=== PATIENT | male | born 1965 | race Caucasian/White ===

== ENCOUNTER → 2017-08-20 | Outpatient (CLI) | payer OTHER ==
[~2017-08-20] VITALS: Ht 180.3 cm; Wt 113.4 kg
[~2017-08-20] MED LIST: DEPO-TESTO100 MG/1 M IM; HYDROCODON-ACE1 EAC5 PO; NORCO 10-325 T1 EACH PO; VENTOLIN HFA 1818 GM INH
--- NOTE | ~2017-08-20 | HPC ---
[facility] [place] [address] PAIN MANAGEMENT CONSULTATION Name: RIC MEEKSN Room #: REG CL MSheron.#: [id number] Admission: 08/20/17 Attend Phys: Eugenio Franco MD Discharge: Date of : 65 Report #: [id number] THIS REPORT FOR: //name// CC: LYRIC Boucher MD DATE OF SERVICE: 08/20/2017 Followup visit for chronic back pain with spondylolisthesis and intrathecal infusion pump. The patient returns to Pain Clinic today for first refill in our clinic. He has had 2 pocket fills and has always been filled under fluoroscopic guidance as a result those 2 complications. Simply uncomfortable, receiving a pump refill without the use of fluoroscopy to guide the needle. I agreed to do this as a favor to Pain and Dr. Jos Boucher. I apparently have also assumed the prescribing of his breakthrough oral opioids. He is on modest dose taking 2 hydrocodone 10/325 per day for breakthrough not taking the same dose each day, but using it carefully only for breakthrough pain. He describes his pain today as modest. He has come from work to have his pump filled. Pain is mostly across his low back. He describes it as 4-5 with medication. As a result of his need for us to provide his medication, he has completed a pain impact score, which is very low 9 out of a possible 70. His score is highest for sleep interference with 4/10. His ORT is 0 for risk for addiction. PHYSICAL EXAMINATION: He is a pleasant gentleman. Blood pressure is 162/94, heart rate 91, respirations 14. His BMI is 34.9. Moves easily from sitting to standing position, ambulates with mild discomfort. Mild tenderness across the scar in the back and he has a pump in the left lower quadrant which is also mildly tender. IMPRESSION: 1. Chronic low back pain with spondylosis. 2. History of testicular cancer in 1990. 3. Intrathecal infusion pump with morphine infusing at 10 mg per day. 4. Management of high risk opioid medications at modest dose of 20 morphine milligram equivalents and hydrocodone 10/325 two tablets daily. 5. Osteoarthritis, status post left knee replacement with right knee osteoarthritis. 6. Gastroesophageal reflux disease. PLAN: 1. I renewed his medications under terms of written opioid agreement established today. We discussed his responsibilities, my responsibilities, [place] [address] PAIN MANAGEMENT CONSULTATION Name: RIC MEEKS ERIC Room #: REG GARETT Tavarez#: [id number] Admission: 08/20/17 Attend Phys: Eugenio Franco MD Discharge: Date of : 65 Report #: [id number] guideline and he signed an opioid agreement. 2. Refill of intrathecal infusion pump under fluoroscopic guidance. PROCEDURE: The patient was taken to fluoroscopic suite, was placed supine. Skin was prepped with ChloraPrep. Skin was anesthetized over the left abdomen with 1% lidocaine. On the first attempt, I advanced the 22-gauge non-coring needle into the pump. Old medication was expected at 4 mL and that is exactly what we retrieved. It was discarded under protocol. The pump was then refilled with morphine 25 mg per mL, 40 mL and the dose at 10 mg per day. His estimated ANA is 75 months. Low reservoir alarm will be on 11/21/2017. I provided him with prescriptions for hydrocodone 60 tablets for release today, 4 and 8 weeks. It will be released in September and October he should be able to make it back to his next appointment for refill. By: [id number] Eugenio rFanco MD /nt
[2017-08-20 14:29] VITALS: BP 162/94
== END | disposition home or self-care (01) ==
LOC: PAIN 07:27
DX: Z45.1 Encounter for adjustment and management of infusion pump (principal); M54.5 Low back pain; G89.29 Other chronic pain; M47.896 Other spondylosis, lumbar region; M17.0 Bilateral primary osteoarthritis of knee; K21.9 Gastro-esophageal reflux disease without esophagitis; Z79.891 Long term (current) use of opiate analgesic; Z79.899 Other long term (current) drug therapy; Z98.890 Other specified postprocedural states; Z85.47 Personal history of malignant neoplasm of testis

== ENCOUNTER → 2017-11-19 | Outpatient (CLI) | payer OTHER ==
[~2017-11-19] VITALS: Ht 180.3 cm; Wt 108.5 kg
--- NOTE | ~2017-11-19 | HPC ---
[facility] [address] [place] [address] PAIN MANAGEMENT CONSULTATION Name: RIC MEEKSN Room #: REG [facility] MJatinder.#: [id number] Admission: 11/19/17 Attend Phys: Eugenio Franco MD Discharge: Date of : 65 Report #: [id number] THIS REPORT FOR: //name// CC: LYRIC GUNTER Physician staff Eugenio Boucher MD DATE OF SERVICE: 11/19/2017 Followup visit for management of intrathecal infusion pump and low dose hydrocodone for breakthrough. Chronic back pain with spondylolisthesis and spondylosis. The patient is here today for refill of his intrathecal pump. This is his second fill with our clinic. He is here today to have his pump filled under fluoroscopic guidance. He suffered a pump pocket fill with overdose and will not continue with his successful therapy unless his pump is filled under fluoroscopy. He reports that he is doing great. He is taking charge of his wellness program and is working out aggressively lifting weights and eating better. His BMI continues to drop and is down to 33.4 from 34.9 at last visit. That is a drop of 11 pounds. His blood pressures improved on both systolic and diastolic, and his pain intensity is manageable with his intrathecal pump. He has previously used higher doses of narcotics but has reduced his use of hydrocodone to 1-2 per day. He still has some medication remaining from his last visit in August. I will renew his hydrocodone until his next pump refill at 2 tablets a day or 20 morphine milligram equivalents. We have discussed at length the CDC guideline, his opioid agreement and his responsibility for safeguarding medications. 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 Medication is helpful for that. He is grateful for the relief allowing him to continue at work. PHYSICAL EXAMINATION: GENERAL: He is pleasant, alert and oriented, appears fit. Muscular. VITAL SIGNS: His blood pressure is 149/85, heart rate is 95, respirations 20. He has mild tenderness across his low back, pain with forward flexion, extension, which is mild. Straight leg raising is negative. Pump is in the left lower quadrant with a slight outward tilt. IMPRESSION: 1. Chronic low back pain with spondylosis. [facility] [address] [place] [address] PAIN MANAGEMENT CONSULTATION Name: RIC MEEKSN Room #: REG [facility] Joss.#: [id number] Admission: 11/19/17 Attend Phys: Eugenio Franco MD Discharge: Date of : 65 Report #: [id number] 2. History of testicular cancer in 1990. 3. Osteoarthritis, status post left knee replacement and right knee arthritis. 4. Gastroesophageal reflux disease. 5. Management of opioid medications at 20 morphine milligrams per day. 6. Intrathecal pump refill and reprogramming. PROCEDURE: After informed consent, he was taken to the fluoroscopic suite for the refill. Skin was prepped with ChloraPrep and I used the C-arm to place the needle into the intrathecal pump on the first attempt without difficulty. I retrieved 6 mL of morphine, which was discarded per protocol and the pump was refilled with 39.5 mL of morphine 25 mg/mL and a reprogramming session performed. He remains on relatively high dose 10 mg per day. No adjustment in dose was made. We discussed the possibility of intrathecal granuloma. He is already on testosterone for the hormonal side effects associated with intrathecal therapies. Plan to see him back in the pain clinic in about 3-6 months. By: [id number] [id number] Eugenio Franco MD /nt
[2017-11-19 09:16] VITALS: BP 149/85
== END | disposition home or self-care (01) ==
LOC: PAIN 06:04
DX: Z45.1 Encounter for adjustment and management of infusion pump (principal); M47.896 Other spondylosis, lumbar region; G89.29 Other chronic pain; M17.0 Bilateral primary osteoarthritis of knee; K21.9 Gastro-esophageal reflux disease without esophagitis; Z79.891 Long term (current) use of opiate analgesic; Z85.47 Personal history of malignant neoplasm of testis; Z98.890 Other specified postprocedural states

== ENCOUNTER → 2018-02-18 | Outpatient (CLI) | payer OTHER ==
[~2018-02-18] VITALS: Ht 180.3 cm; Wt 107.0 kg
--- NOTE | ~2018-02-18 | HPC ---
[facility] [place] [address] PAIN MANAGEMENT CONSULTATION Name: RIC MEEKSN Room #: REG [facility] MJatinder.#: [id number] Admission: 02/18/18 Attend Phys: Eugenio Franco MD Discharge: Date of : 65 Report #: [id number] THIS REPORT FOR: //name// CC: LYRIC JAIN Physician staff Eugenio Franco DATE OF SERVICE: 02/18/2018 CHIEF COMPLAINT: Followup visit for refill of intrathecal infusion pump. The patient returns to clinic today for refill. We filled his pump under fluoroscopic guidance at his request. He had a pocket fill at the clinic at Pain and as I think reasonably requested that he have his pump filled under fluoroscopic guidance for the needle. This reassures him that the pump fill has been done without missing the pocket. I am glad to provide him with this added level of security for this important therapy he has now had for over 10 years. He has chronic back pain and denies leg pain. His intrathecal pump provides morphine only at a dose of 10 mg/mL. He is aware that there may be a risk of intrathecal granuloma formation with the higher dose of morphine in his pump. We have only taken over the Pain physicians within the last 12 months. He also is on testosterone therapy for opioid related endocrinopathy. He has developed polycythemia and his primary care physician, Dr. Jain, is lowering his dose. I did also point out to him that he has a history of testicular cancer. I do not know the evidence on a supplement of testosterone and testicular cancer, but we are always cautious about testosterone for patients who have had prostate cancer in the past. He says he has discussed this with his primary care physician. He is currently working and in fact will be driving today to [place]. 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 I was glad he was back at work after being on disability for over 7 years. MEDICATIONS: Reviewed and reconciled. He continues to take hydrocodone one tablet twice a day for breakthrough pain and I have been providing this for him under terms of written opioid agreement. He has no evidence of misuse or abuse. PHYSICAL EXAMINATION: GENERAL: He is a pleasant gentleman. VITAL SIGNS: Blood pressure 178/92, heart rate 85. BMI is 32.9. EXTREMITIES: Moves from sitting to standing position, walks without difficulty. He has some tenderness across his low back and limited range of motion. Denies any leg pain at this time. His pain score is 7/10. [address] [address] PAIN MANAGEMENT CONSULTATION Name: RIC MEEKS Room #: REG CL Daysi#: [id number] Admission: 02/18/18 Attend Phys: Eugenio Franco MD Discharge: Date of : 65 Report #: [id number] IMPRESSION: 1. Chronic intractable back pain. 2. Intrathecal infusion pump. 3. History of laminectomy x 2. 4. History of left total knee replacement. PROCEDURE: Refill and reprogramming of intrathecal infusion pump under fluoroscopic guidance. He was taken to fluoroscopic suite. C-arm was used to identify the intrathecal pump and its placement. The skin was prepped with ChloraPrep. A 22-gauge non-coring needle advanced into the intrathecal pump. Old medication was removed and discarded. We expected 3.5 and retrieved 5 mL that was discarded per protocol. The pump was then refilled with 39.5 mL of morphine 25 mg/mL. Reprogramming session was performed. His daily dose will be 10 mg of morphine per day. His refill interval will carry him through until 05/22/2018 at which time we will see him back in the clinic for refill. Programming information was checked by myself, the nurse copy provided to the patient. We once again discussed the importance of making sure that he feels okay today and if he has any changes in sensorium, lightheadedness, dizziness, or sleepiness, he should go immediately to the Emergency Room. I think it is highly unlikely that there has been any half pocket fill or a problem with today's refill, everything went according to protocol. Followup visit planned in 3 months. By: 1206 20 Eugenio Franco MD /andrew
[2018-02-18 09:38] VITALS: BP 178/92
== END | disposition home or self-care (01) ==
LOC: PAIN 07:03
DX: Z45.1 Encounter for adjustment and management of infusion pump (principal); M54.9 Dorsalgia, unspecified; G89.29 Other chronic pain; Z98.890 Other specified postprocedural states; Z96.652 Presence of left artificial knee joint; Z79.899 Other long term (current) drug therapy; Z79.891 Long term (current) use of opiate analgesic

== ENCOUNTER → 2018-05-16 | Outpatient (CLI) | payer OTHER ==
[~2018-05-16] VITALS: Ht 180.3 cm; Wt 113.7 kg
[~2018-05-16] MED LIST changes: +NARCAN4 MG NASAL
--- NOTE | ~2018-05-16 | HPC ---
[facility] [place] [address] PAIN MANAGEMENT CONSULTATION Name: RIC MEEKS Room #: REG [facility] M..#: [id number] Admission: 05/16/18 Attend Phys: Eugenio Franco MD Discharge: Date of : 65 Report #: [id number] THIS REPORT FOR: //name// CC: LYRIC JAIN DO Physician staff Eugenio Boucher MD DATE OF SERVICE: 05/16/2018 Followup visit for refill of intrathecal infusion pump. The patient returns to pain clinic today for fluoroscopically-guided refill of his intrathecal pump. He is doing well. He is satisfied with his current regimen of medication. He does have a new injury. 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 He still has some tenderness there, but there is nothing to do other than allow it to resolve. He has been taking a little bit more of his breakthrough hydrocodone, which I provide for him. He is allowed 2 hydrocodone 10/325 tablets per day as needed for a supplement to his intrathecal pump. We reviewed the refill and I have agreed to provide these for him under fluoroscopic guidance due to his tremendous fear of intrathecal pump pocket fill. I think that the use of fluoroscopy is warranted in this circumstance. We have also discussed the use of nasal naloxone for many of our patients, particularly those are fearful of overdose, having nasal naloxone on hand for immediate treatment should something untoward develop is a reassurance. He has agreed to fill the prescription as described. He continues all other medications including testosterone therapy for opioid related endocrinopathy and follows with Dr. Jain for his polycythemia. PHYSICAL EXAMINATION: GENERAL: He is a fit, muscular appearing 53-year-old. VITAL SIGNS: His blood pressure is 164/99, heart rate 88, respirations 16. BMI is 35. MUSCULOSKELETAL: He has some tenderness across his low back, which is mild to moderate. Pump is in the left lower quadrant of the abdomen, is a bit of forward cant. It is nontender. He has multiple abdominal scars. IMPRESSION: [facility] [address] [place] [address] PAIN MANAGEMENT CONSULTATION Name: RIC MEEKSN Room #: REG GARETT PendletonSheronCristopher.#: [id number] Admission: 05/16/18 Attend Phys: Eugenio Franco MD Discharge: Date of : 65 Report #: [id number] 1. Chronic intractable back pain with spondylosis, status post multiple spinal surgeries. 2. History of testicular cancer in 1990. 3. Elevated body mass of 33. 4. Management of intrathecal infusion pump with morphine. Refill today. 5. Management of high risk opioid medications in terms of written opioid agreement. Maximum MME is 20. 6. Osteoarthritis, left knee, status post replacement. 7. Gastroesophageal reflux. PROCEDURE: Refill and reprogramming. DESCRIPTION OF PROCEDURE: Skin was prepped with ChloraPrep. Skin anesthetized and a 22-gauge non-coring needle advanced under fluoroscopic guidance into the intrathecal pump. We expected 4.7 mL. We got nearly exactly that amount and it was disposed per protocol. Pump was then refilled with 39.5 mL of morphine 10 mg/mL and reprogramming session at 10 mg per day provided. His next refill is scheduled for 08/17/2018. Prescriptions were provided for his breakthrough hydrocodone 10/325 two tablets per day and also for naloxone 4 mg spray 1 activation every 3 minutes if unconscious with repeat as necessary until the patient is awake. The patient is instructed in any circumstance to call 911. Followup visit planned in 3 months. By: 1644 [id number] Eugenio Franco MD /nt
[2018-05-16 14:49] VITALS: BP 164/99
--- NOTE | 2018-05-16 15:21 | NUR ---
Pain Clinic Assessment: 1. History of Osteoarthritis: knees History of Rheumatoid Arthritis: Not Applicable 2. Height: 5 ft. 11 in. 180.3 cm. Weight: 250.6 lb. oz. 113.672 kg. Patient's BMI: 35.0 3. Vital Signs: BP: 164/99 Pulse: 88 Resp: 16 Temp: 02 Sat: 100 ECG Mon: 4. Pain Intensity: 4 5. Fall Risk: Dizziness: N Needs help standing or walking: N Fallen in the last 3 months: N Fall risk comments: 6. Patient on Blood Thinner: None 7. History of Hypertension: N 8. Opioid Therapy greater than 6 weeks: Y Opiate Contract Signed: 08/20/17 9. Risk Assessment Tool Provided: 0-LOW RISK 10. Functional Assessment Tool: 11. Recreational Drug Use: Never Drug Type: Tobacco Use: Never Smoker Tobacco Type: Amount or Packs/day: How Many Years: Alcohol Use: Yes Frequency: Quant:
== END | disposition home or self-care (01) ==
LOC: PAIN 08:28
DX: Z45.1 Encounter for adjustment and management of infusion pump (principal); G89.29 Other chronic pain; M47.9 Spondylosis, unspecified; M17.12 Unilateral primary osteoarthritis, left knee; K21.9 Gastro-esophageal reflux disease without esophagitis; Z98.890 Other specified postprocedural states; Z85.47 Personal history of malignant neoplasm of testis; Z79.891 Long term (current) use of opiate analgesic; Z79.899 Other long term (current) drug therapy

== ENCOUNTER → 2018-08-15 | Outpatient (CLI) | payer OTHER ==
[~2018-08-15] VITALS: Ht 180.3 cm; Wt 110.2 kg
--- NOTE | ~2018-08-15 | HPC ---
[facility] [address] [address] PAIN MANAGEMENT CONSULTATION Name: RIC MEEKS Room #: REG [facility] [id number] Admission: 08/15/18 ������������������ Attend Phys: Eugenio Franco MD Discharge: ������������������ Date of : 65 Report #: [id number] THIS REPORT FOR: //name// CC: LYRIC Jain Physician staff Eugenio Boucher DATE OF SERVICE: 08/15/2018 Followup visit for refill and management of intrathecal infusion pump. The patient returns to the pain clinic today for refill of his intrathecal infusion pump under fluoroscopic guidance. We are doing so at the patient's request because of a previous pump pocket fill. He wants to never experience that again and the reassurance I think is worth putting him under the fluoroscopic suite to do so. He continues on a fairly high dose of morphine. We have discussed intrathecal granuloma at each visit. We will continue him on his current rate; however, with no adjustment. He is doing fairly well and is highly functional. 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 He is trying to live his life as fully as possible. PHYSICAL EXAMINATION: He is very pleasant and outgoing. Blood pressure today is 169/93, heart rate 88 and respirations 16. He is 5 feet, 11 inches; 243 pounds and BMI is 33.9. He is muscularly built and clearly has been lifting some weights. Pump is in the left lower quadrant and nontender. He has some mild tenderness across his low back. IMPRESSION: 1. Chronic back pain with spondylosis, status post laminectomy. 2. History of testicular cancer. 3. Management of opioid medications oral with supplement of his intrathecal infusion pump, 20 MME per day maximum. 4. Osteoarthritis, status post left knee replacement. 5. Gastroesophageal reflux. 6. Management of intrathecal infusion pump with refill and reprogramming. PROCEDURE: He was taken to the fluoroscopic suite. He was placed on the fluoroscopic suite and the C-arm was used to identify the intrathecal pump refill port. A 22-gauge non-coring needle advanced in the pump. Old medication was removed and discarded. The pump was then refilled with morphine 25 mg/mL. The pump was reprogrammed to provide 10 mg/mL and reprogramming session [address] [address] PAIN MANAGEMENT CONSULTATION Name: JEANNARIC ERIC Room #: REG [facility]on[facility] [id number] Admission: 08/15/18 ������������������ Attend Phys: Eugenio Franco MD Discharge: ������������������ Date of : 65 Report #: [id number] performed and checked. Programming information provided to the patient. He was discharged and we will see him back in about 3 months. ��������������������������������������������� ���������������������������������������� By: ��������������������������������������������� [id number] [id number] Eugenio Franco MD /nt
[2018-08-15 14:00] VITALS: BP 169/93
--- NOTE | 2018-08-15 14:04 | NUR ---
Pain Clinic Assessment: 1. History of Osteoarthritis: knees History of Rheumatoid Arthritis: Not Applicable 2. Height: 5 ft. 11 in. 180.3 cm. Weight: 243.0 lb. oz. 110.224 kg. Patient's BMI: 33.9 3. Vital Signs: BP: 169/93 Pulse: 88 Resp: 16 Temp: 02 Sat: 97 ECG Mon: 4. Pain Intensity: 4 5. Fall Risk: Dizziness: N Needs help standing or walking: N Fallen in the last 3 months: N Fall risk comments: 6. Patient on Blood Thinner: None 7. History of Hypertension: N 8. Opioid Therapy greater than 6 weeks: Y Opiate Contract Signed: 08/20/17 9. Risk Assessment Tool Provided: 0-LOW RISK 10. Functional Assessment Tool: 11. Recreational Drug Use: Never Drug Type: Tobacco Use: Never Smoker Tobacco Type: Amount or Packs/day: How Many Years: Alcohol Use: Yes Frequency: Quant:
== END | disposition home or self-care (01) ==
LOC: PAIN 06:54
DX: Z45.1 Encounter for adjustment and management of infusion pump (principal); M47.896 Other spondylosis, lumbar region; G89.29 Other chronic pain; M17.12 Unilateral primary osteoarthritis, left knee; K21.9 Gastro-esophageal reflux disease without esophagitis; Z79.891 Long term (current) use of opiate analgesic; Z85.47 Personal history of malignant neoplasm of testis; Z96.652 Presence of left artificial knee joint; Z98.890 Other specified postprocedural states; Z79.899 Other long term (current) drug therapy

== ENCOUNTER → 2018-11-14 | Outpatient (CLI) | payer OTHER ==
[~2018-11-14] VITALS: Ht 177.8 cm; Wt 111.1 kg
[2018-11-14 12:47] VITALS: BP 153/100
--- NOTE | 2018-11-14 12:51 | NUR ---
Pain Clinic Assessment: 1. History of Osteoarthritis: knees History of Rheumatoid Arthritis: Not Applicable 2. Height: 5 ft. 10 in. 177.8 cm. Weight: 245.0 lb. oz. 111.132 kg. Patient's BMI: 35.2 3. Vital Signs: BP: 153/100 Pulse: 81 Resp: 16 Temp: 02 Sat: 98 ECG Mon: 4. Pain Intensity: 7 5. Fall Risk: Dizziness: N Needs help standing or walking: N Fallen in the last 3 months: N Fall risk comments: 6. Patient on Blood Thinner: None 7. History of Hypertension: N 8. Opioid Therapy greater than 6 weeks: Y Opiate Contract Signed: 08/20/17 9. Risk Assessment Tool Provided: 0-LOW RISK 10. Functional Assessment Tool: 11. Recreational Drug Use: Never Drug Type: Tobacco Use: Never Smoker Tobacco Type: Amount or Packs/day: How Many Years: Alcohol Use: Yes Frequency: Quant:
--- NOTE | 2018-11-21 16:33 | HPC ---
[facility] [place] [address] PAIN MANAGEMENT CONSULTATION Name: RIC MEEKS Room #: REG CL Joss.#: [id number] Admission: 11/14/18 Attend Phys: Eugenio Franco MD Discharge: Date of : 65 Report #: [id number] THIS REPORT FOR: //name// CC: LYRIC GUNTER Physician staff Eugenio Franco DATE OF SERVICE: 11/14/2018 Followup visit for management of intrathecal infusion pump with refill for chronic low back pain with spondylosis, status post laminectomy. The patient returns to pain clinic today for a refill of his intrathecal pump. I have been refilling his intrathecal pump under fluoroscopic guidance at the request of pain physician, Dr. Isaiah Boucher. He has had intrathecal therapy for a number of years and is now on his third intrathecal pump. He was originally treated by Dr. Matthew Hernandez, who has left the practice of medicine. As the record will reflect he is here because he underwent a pocket fill. Disaster was everted and he was treated with Narcan to avoid overdose. Since that time, he has requested that his pump be refilled under fluoroscopic guidance and he has been willing to do this as we understand his concern and anxiety related to the procedure. He wants to continue with his intrathecal therapy, which has been helpful for him. We reviewed again his high dose of morphine 10 mg per day and I have discussed intrathecal granuloma once again. He continues to remain active. He is working, enjoys lifting weights with his upper body, but does not use his lower body. PHYSICAL EXAMINATION: GENERAL: Pleasant gentleman, alert and oriented, outgoing. VITAL SIGNS: His blood pressure is 153/100, heart rate 81, respirations 16, 5 feet 10 inches, 245 pounds, BMI of 35.2. He moves easily from a standing position. He is nonantalgic in his movements. MUSCULOSKELETAL: Reveals scarring across his low back from previous surgery and tenderness. He has range of motion limitations. His pump is in the left lower quadrant, slightly tilted, nontender. IMPRESSION AND PLAN: 1. Chronic low back pain with spondylosis, post-laminectomy. 2. History of testicular cancer. 3. Management of opioid medications as an oral supplement to his intrathecal infusion pump. He has provided modest doses. We have discussed the importance [address] [address] PAIN MANAGEMENT CONSULTATION Name: JEANNARIC ERIC Room #: REG [facility].#: [id number] Admission: 11/14/18 Attend Phys: Eugenio Franco MD Discharge: Date of : 65 Report #: [id number] of safeguarding his medications carefully and he is on an opioid agreement. We have reviewed the prescription drug monitoring program information and there are no unexpected entries. 4. Osteoarthritis, status post left knee replacement with complaints now of right knee pain. He is undergoing Synvisc injections. 5. Gastroesophageal reflux. 6. Management of intrathecal infusion pump with refill and reprogramming. PROCEDURE: He was taken to fluoroscopic suite, placed on the fluoroscopic table. Skin prepped with ChloraPrep. Skin was anesthetized overlying the port and on the first attempt, a 22-gauge non-coring needle advanced into the port without difficulty. I aspirated 3.5 mL of solution, which was discarded per protocol. Pump was then refilled with morphine at 25 mg per mL and reprogramming session performed 10 mg for 24 hours. His next refill is scheduled for February 15, 2019. There were no complications. Reprogramming information was provided to the patient. Followup visit planned in early February. <ELECTRONICALLY SIGNED> By: Eugenio Franco MD 11/21/18 1633 1710 0026 Eugenio Franco MD /nt
== END | disposition home or self-care (01) ==
LOC: PAIN 07:03
DX: Z45.1 Encounter for adjustment and management of infusion pump (principal); M47.26 Other spondylosis with radiculopathy, lumbar region; G89.29 Other chronic pain; M96.1 Postlaminectomy syndrome, not elsewhere classified; K21.9 Gastro-esophageal reflux disease without esophagitis; M17.12 Unilateral primary osteoarthritis, left knee; Z79.891 Long term (current) use of opiate analgesic; Z98.890 Other specified postprocedural states; Z79.899 Other long term (current) drug therapy; Z85.47 Personal history of malignant neoplasm of testis; Z96.652 Presence of left artificial knee joint

== ENCOUNTER → 2019-02-06 | Outpatient (CLI) | payer OTHER ==
[~2019-02-06] VITALS: Ht 180.3 cm; Wt 113.4 kg
[~2019-02-06] MED LIST changes: +CARAFATE1 GM PO; +PRILOSEC OTC20 MG PO
[2019-02-06 13:16] VITALS: BP 170/100
--- NOTE | 2019-02-06 13:38 | NUR ---
Pain Clinic Assessment: 1. History of Osteoarthritis: SHOULDERS KNEES History of Rheumatoid Arthritis: Not Applicable 2. Height: 5 ft. 11 in. 180.3 cm. Weight: 250.0 lb. oz. 113.400 kg. Patient's BMI: 34.9 3. Vital Signs: BP: 170/100 Pulse: 82 Resp: 16 Temp: 02 Sat: 100 ECG Mon: 4. Pain Intensity: 5-6 5. Fall Risk: Dizziness: N Needs help standing or walking: N Fallen in the last 3 months: N Fall risk comments: 6. Patient on Blood Thinner: None 7. History of Hypertension: N 8. Opioid Therapy greater than 6 weeks: Y Opiate Contract Signed: 08/20/17 9. Risk Assessment Tool Provided: 0-LOW RISK 10. Functional Assessment Tool: 11. Recreational Drug Use: Never Drug Type: Tobacco Use: Never Smoker Tobacco Type: Amount or Packs/day: How Many Years: Alcohol Use: Yes Frequency: Weekly Quant: 1-2
== END | disposition home or self-care (01) ==
LOC: PAIN 07:07
DX: Z45.1 Encounter for adjustment and management of infusion pump (principal); M47.896 Other spondylosis, lumbar region; M19.90 Unspecified osteoarthritis, unspecified site; M96.1 Postlaminectomy syndrome, not elsewhere classified; Z79.891 Long term (current) use of opiate analgesic; Z79.899 Other long term (current) drug therapy

== ENCOUNTER → 2019-05-08 | Outpatient (CLI) | payer OTHER ==
[~2019-05-08] VITALS: Ht 180.3 cm; Wt 114.9 kg
--- NOTE | ~2019-05-08 | HPC ---
[facility] [place] [address] PAIN MANAGEMENT CONSULTATION Name: RIC MEEKS Room #: REG [facility].#: [id number] Admission: 05/08/19 Attend Phys: Eugenio Franco MD Discharge: Date of : 65 Report #: [id number] THIS REPORT FOR: //name// cc: LYRIC GUNTER DO Physician not on staff ~ THIS REPORT FOR: //name// CC: LYRIC GUNTER Physician staff Eugenio Boucher MD DATE OF SERVICE: 05/08/2019 Followup visit for management of intrathecal infusion pump and oral medications for the treatment of chronic intractable pain. The patient is here today for fluoroscopically guided pump refill. Rationale for this procedure done under fluoroscopy is described elsewhere in the record. He had a pump pocket fill which scared the pants off of him many years ago. He wants to make sure that we use every measure available to ensure that the pump pocket fill does not return. He is having his right hip replaced within 1-2 weeks. We plan to leave his baseline medications including his morphine intrathecal and his oral hydrocodone 1-2 tablets a day for breakthrough stable. The surgeons may provide additional acute on chronic pain medications for him for the 1-2 weeks following surgery that he may need an additional boost of pain medication. PHYSICAL EXAMINATION: He is pleasant, alert and oriented. No signs of depression, anxiety or overmedication. His blood pressure is 170/98, heart rate 80, respirations 16. He is 5 feet, 11 inches, 253 pounds with a BMI of 35.3. His pump is in his left lower abdomen and nontender. He has pain in his right hip with flexion, extension, internal and external rotation. Pain across his low back is noted as well from previous surgeries. He has laminectomy scar. IMPRESSION: 1. Chronic intractable pain with spondylosis, post-laminectomy syndrome with radiculopathy. 2. Osteoarthritis, preparing to have his right hip replaced. 3. History of testicular cancer. 4. Management of intrathecal infusion pump with reprogramming and refilling under fluoroscopic guidance. 5. Management of low-dose hydrocodone for breakthrough. I provided him with hydrocodone 10/325 one tablet b.i.d. We are trying to avoid any further increases in his intrathecal medication to avoid the possibility of intrathecal [address] [address] PAIN MANAGEMENT CONSULTATION Name: MEEKSRIC Room #: REG [facility].#: [id number] Admission: 05/08/19 Attend Phys: Eugenio Franco MD Discharge: Date of : 65 Report #: [id number] granuloma. PROCEDURE: Refill and reprogramming of intrathecal infusion pump. DESCRIPTION OF PROCEDURE: He was taken to fluoroscopic suite after informed consent, placed supine. I used the fluoroscopy to guide my needle into the central port of the intrathecal pump. I was able to aspirate his remaining volume of medication that was discarded per protocol. Volume as were expected. Pump was then refilled with morphine 25 mg per mL and a reprogramming session performed. He is receiving 10 mg per day. Prescriptions were sent electronically to the pharmacy and I reviewed the prescription drug monitoring program to make sure that his medications were being prescribed appropriately and that there were no other prescribers. Followup visit scheduled in 2-3 months. By: [id number] Eugenio Franco MD /nt
[2019-05-08 14:03] VITALS: BP 170/98
--- NOTE | 2019-05-08 14:30 | NUR ---
Pain Clinic Assessment: 1. History of Osteoarthritis: SHOULDERS KNEES BACK History of Rheumatoid Arthritis: Not Applicable 2. Height: 5 ft. 11 in. 180.3 cm. Weight: 253.2 lb. oz. 114.851 kg. Patient's BMI: 35.3 3. Vital Signs: BP: 170/98 Pulse: 80 Resp: 16 Temp: 02 Sat: 98 ECG Mon: 4. Pain Intensity: 8 5. Fall Risk: Dizziness: N Needs help standing or walking: N Fallen in the last 3 months: N Fall risk comments: 6. Patient on Blood Thinner: None 7. History of Hypertension: N 8. Opioid Therapy greater than 6 weeks: Y Opiate Contract Signed: 08/20/17 9. Risk Assessment Tool Provided: LOW RISK 0/3 10. Functional Assessment Tool: 11. Recreational Drug Use: Never Drug Type: Tobacco Use: Never Smoker Tobacco Type: Amount or Packs/day: How Many Years: Alcohol Use: Yes Frequency: Weekly Quant: 1-2
== END | disposition home or self-care (01) ==
LOC: PAIN 06:57
DX: Z45.1 Encounter for adjustment and management of infusion pump (principal); G89.29 Other chronic pain; M47.26 Other spondylosis with radiculopathy, lumbar region; M96.1 Postlaminectomy syndrome, not elsewhere classified; M16.11 Unilateral primary osteoarthritis, right hip; Z98.890 Other specified postprocedural states; Z79.891 Long term (current) use of opiate analgesic; Z85.47 Personal history of malignant neoplasm of testis

== ENCOUNTER → 2019-08-04 | Outpatient (CLI) | payer OTHER ==
[~2019-08-04] VITALS: Ht 180.3 cm; Wt 112.9 kg
--- NOTE | ~2019-08-04 | HPC ---
[facility] [place] [address] PAIN MANAGEMENT CONSULTATION Name: RIC MEEKS Room #: REG [facility]..#: [id number] Admission: 08/04/19 Attend Phys: Eugenio Franco MD Discharge: Date of : 65 Report #: [id number] THIS REPORT FOR: cc: LYRIC GUNTER DO Physician not on staff Eugenio Franco MD ~ CC: LYRIC GUNTER Physician staff Eugenio Boucher DATE OF SERVICE: 08/04/2019 Followup visit for chronic intractable low back pain with intrathecal pump therapy, longstanding. The patient is here today for refill of his intrathecal infusion pump, which is infusing high dose morphine. Daily dose is currently set at 10 mg per day. He has been stable at that dose for a number of years. He recently underwent hip replacement and is doing well. He has now had both of the large joints and left replaced his knee several years ago. He has a history of testicular cancer, history of previous laminectomy, which has resulted in some mechanical and axial back pain for which he receives intrathecal therapy. PHYSICAL EXAMINATION: GENERAL: Pleasant gentleman, does not appear overmedicated, depressed or anxious. VITAL SIGNS: Blood pressure is 180/100, pulse is 84, respirations 18. MUSCULOSKELETAL: He moves independently from sitting to standing position. His gait is nonantalgic. He has good range of motion of his lumbar spine with tenderness across the lumbosacral segment. Pump is in the left lower quadrant. IMPRESSION: 1. Chronic back pain with spondylosis, post-laminectomy syndrome, failed back. 2. Osteoarthritis, status post left hip and left knee replacement. 3. History of testicular cancer. 4. Management of intrathecal infusion pump with reprogramming and refill. 5. I provide him with hydrocodone 5 mg, #60 tablets for breakthrough in order to avoid increasing his pump to higher levels due to concerns of intrathecal granuloma. We refill his intrathecal pump under fluoroscopic guidance because of a near critical incident that occurred years ago when he had a pocket fill. He [address] [address] PAIN MANAGEMENT CONSULTATION Name: RIC MEEKS Room #: REG [facility] M.Cristopher.#: [id number] Admission: 08/04/19 Attend Phys: uEgenio Franco MD Discharge: Date of : 65 Report #: [id number] is frightened of doing it in any other way and I understand, we have agreed to do this for him after he was referred to us by [facility]. PROCEDURE: Fluoroscopically guided intrathecal pump refill. He was taken to fluoroscopic suite after informed consent, placed supine. Fluoroscopic guidance was used to identify the port. Skin was prepped with ChloraPrep and a 27-gauge needle was used to anesthetize the skin with 1% lidocaine. I advanced a 22-gauge non-coring needle into the pump. Old medication removed and discarded per protocol. Volume was as expected. Pump was then refilled with morphine 25 mg per mL and reprogramming session performed for 10 mg per day. His next refill is scheduled under fluoroscopy to be sometime before 11/04/2019. Electronic prescribing was performed for 60 hydrocodone 5 mg tablets. Discussed the importance of safeguarding all medication. He is grateful for the additional pain relief on the bad day. He denies side effects. He understands the importance of following all tenets of his written opioid agreement. I checked his use on the prescription drug monitoring program information. There are no unexpected entries. He did have a short prescription for hydromorphone after his hip replacement, which was understood and allowed by our clinic. Follow up as needed. By: [id number] Eugenio Franco MD /nt
[2019-08-04 12:37] VITALS: BP 180/100
--- NOTE | 2019-08-04 12:43 | NUR ---
Pain Clinic Assessment: 1. History of Osteoarthritis: SHOULDERS KNEES BACK History of Rheumatoid Arthritis: Not Applicable 2. Height: 5 ft. 11 in. 180.3 cm. Weight: 249.0 lb. oz. 112.946 kg. Patient's BMI: 34.7 3. Vital Signs: BP: 180/100 Pulse: 84 Resp: 16 Temp: 02 Sat: 98 ECG Mon: 4. Pain Intensity: 2-3 5. Fall Risk: Dizziness: N Needs help standing or walking: N Fallen in the last 3 months: N Fall risk comments: 6. Patient on Blood Thinner: None 7. History of Hypertension: N 8. Opioid Therapy greater than 6 weeks: Y Opiate Contract Signed: 08/20/17 9. Risk Assessment Tool Provided: LOW RISK 0/3 10. Functional Assessment Tool: 11. Recreational Drug Use: Never Drug Type: Tobacco Use: Never Smoker Tobacco Type: Amount or Packs/day: How Many Years: Alcohol Use: Yes Frequency: Quant:
== END | disposition home or self-care (01) ==
LOC: PAIN 06:58
DX: Z45.1 Encounter for adjustment and management of infusion pump (principal); M54.5 Low back pain; G89.29 Other chronic pain; M47.896 Other spondylosis, lumbar region; M96.1 Postlaminectomy syndrome, not elsewhere classified; M19.90 Unspecified osteoarthritis, unspecified site; Z96.652 Presence of left artificial knee joint; Z96.642 Presence of left artificial hip joint; Z79.891 Long term (current) use of opiate analgesic; Z98.890 Other specified postprocedural states; Z85.47 Personal history of malignant neoplasm of testis

== ENCOUNTER → 2019-11-03 | Outpatient (CLI) | payer OTHER ==
[~2019-11-03] VITALS: Ht 180.3 cm; Wt 111.7 kg
[~2019-11-03] MED LIST changes: +COZAAR 25 MG TA25 M2 PO
[2019-11-03 12:52] VITALS: BP 152/99
--- NOTE | 2019-11-03 13:11 | NUR ---
Pain Clinic Assessment: 1. History of Osteoarthritis: SHOULDERS KNEES BACK History of Rheumatoid Arthritis: Not Applicable 2. Height: 5 ft. 11 in. 180.3 cm. Weight: 246.2 lb. oz. 111.676 kg. Patient's BMI: 34.4 3. Vital Signs: BP: 152/99 Pulse: 82 Resp: 16 Temp: 02 Sat: 97 ECG Mon: 4. Pain Intensity: 3-4 5. Fall Risk: Dizziness: N Needs help standing or walking: N Fallen in the last 3 months: N Fall risk comments: 6. Patient on Blood Thinner: None 7. History of Hypertension: N 8. Opioid Therapy greater than 6 weeks: Y Opiate Contract Signed: 08/20/17 9. Risk Assessment Tool Provided: LOW RISK 0/3 10. Functional Assessment Tool: 11. Recreational Drug Use: Current within past 3 mos Drug Type: marajuana Tobacco Use: Never Smoker Tobacco Type: Amount or Packs/day: How Many Years: Alcohol Use: Yes Frequency: Daily Quant: 1 beer/night
--- NOTE | 2019-11-06 09:57 | HPC ---
[facility] [place] [address] PAIN MANAGEMENT CONSULTATION Name: RIC MEEKS [facility] [id number] Admission: 11/03/19 Attend Phys: Eugenio Franco MD Discharge: Date of : 65 Report #: [id number] THIS REPORT FOR: cc: LYRIC GUNTER DO Physician not on staff Eugenio Franco MD ~ CC: LYRIC GUNTER DO Physician staff Eugenio Boucher DATE OF SERVICE: 11/03/2019 Follow up visit for chronic intractable low back pain, post-laminectomy syndrome. Management of intrathecal pump with refill under fluoroscopy. The patient is here today for refill of his intrathecal infusion pump. We do it under fluoroscopic guidance because of a past history of pump pocket refill. He has a high daily dose, current dose of morphine is unchanged at 10 mg per day. We have reduced his concentration of morphine from 50 to 25, hopefully to reduce the likelihood of intrathecal granuloma. He is having a little bit of numbness in his right foot, but not enough that I would suggest that we proceed today with diagnostic testing. We did discuss briefly today the possibility of an intrathecal pump myelogram where we test the catheter and inject dye, that may be something that we will consider in the future if his symptoms increase. Overall, his pain management is adequate, he does not request an increase in his refill. He has been able to ride his motorcycle all the way to [place] and back. I do provide him with hydrocodone under terms of written agreement. I reviewed his medications on the prescription drug monitoring program from [facility] and there are no unexpected entries. He is on testosterone for morphine-related hypogonadism. PHYSICAL EXAMINATION: GENERAL: He is a pleasant gentleman, alert and oriented. No signs of overmedication, depression or anxiety. VITAL SIGNS: Blood pressure today is 152/99, heart rate 82, respirations 16. I did discuss with him following up with his primary care physician about his diastolic hypertension. MUSCULOSKELETAL: He moves independently from sitting to standing position. His gait is mildly antalgic. His pump is in the left lower quadrant and is palpable. There are no signs of swelling or infection. [address] [address] PAIN MANAGEMENT CONSULTATION Name: RIC MEEKS [facility] [id number] Admission: 11/03/19 Attend Phys: Eugenio Franco MD Discharge: Date of : 65 Report #: [id number] IMPRESSION: 1. Chronic intractable back pain, post-laminectomy syndrome. 2. Osteoarthritis, status post left hip and left knee replacements. 3. History of testicular cancer. 4. Management of intrathecal infusion pump with reprogramming and refill. 5. Management of high risk medications. A small dose of hydrocodone of 1-2 tablets daily under terms of written agreement. PROCEDURE: Refill under fluoroscopy. He was taken to the fluoroscopic suite and placed supine. Skin was prepped with ChloraPrep and anesthetized with 1% lidocaine. A 22-gauge non-coring needle was advanced in the pump, old medication removed and discarded per protocol. Pump was then refilled with morphine 25 mg per mL, 40 mL, and a reprogramming session was performed. Programming was checked by myself and the nurse and a copy was given to the patient for discharge. Followup visit planned before 02/05/2020. <ELECTRONICALLY SIGNED> By: Eugenio Franco MD 11/06/19 [id number] Eugenio Franco MD /nt
== END | disposition home or self-care (01) ==
LOC: PAIN 06:54
PROVIDERS: ATTEND Anesthesiology Pain Medicine
DX: Z45.1 Encounter for adjustment and management of infusion pump (principal); G89.29 Other chronic pain; M54.9 Dorsalgia, unspecified; M96.1 Postlaminectomy syndrome, not elsewhere classified; M19.90 Unspecified osteoarthritis, unspecified site; Z79.891 Long term (current) use of opiate analgesic; Z98.890 Other specified postprocedural states; Z79.899 Other long term (current) drug therapy; Z85.47 Personal history of malignant neoplasm of testis

== ENCOUNTER → 2020-02-02 | Outpatient (CLI) | payer OTHER ==
[~2020-02-02] VITALS: Ht 180.3 cm; Wt 110.7 kg
--- NOTE | ~2020-02-02 | HPC ---
[facility] [place] [address] PAIN MANAGEMENT CONSULTATION Name: RIC MEEKS Room #: REG [facility]..#: [id number] Admission: 02/02/20 Attend Phys: Eugenio Franco MD Discharge: Date of : 65 Report #: [id number] CC: LYRIC CARRILLO MD Physician staff Eugenio Franco DATE OF SERVICE: 02/02/2020 Followup visit for refill and reprogram of intrathecal infusion pump. The patient returns to pain clinic today for refill and reprogramming with intrathecal infusion pump. No changes are necessary in his current infusion. He has high concentration of morphine at a relatively high level. His daily dose is 10 mg per day. We will make sure and keep a careful watch for symptoms that might suggest an intrathecal granuloma. He just other than the small amount of numbness discussed at last visit, there have been no other changes. 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 I do provide him with hydrocodone in order to avoid increasing his intrathecal pump further due to the high concentration. Hydrocodone 10/325, #60 tablets was provided for him on 11/05/2019 with a 4 and 8-week release prescription. I will reduce this for him again today. PHYSICAL EXAMINATION: GENERAL: Pleasant, alert and oriented. VITAL SIGNS: Blood pressure is 164/92. We discussed following up with his primary care physician. Heart rate is 82. MUSCULOSKELETAL: Mild antalgic gait. Tenderness across the low back from prior scar. Pump in the left lower quadrant. Large abdominal scar from prior surgery as well due to testicular cancer. IMPRESSION: 1. Chronic intractable back pain, post-laminectomy syndrome. 2. Osteoarthritis, status post left hip replacement and left knee replacement. 3. Testicular cancer history, remission. 4. Management of intrathecal infusion pump. 5. Management of high risk medications with an opioid agreement. PROCEDURE: Refill of pump under fluoroscopic guidance. We do this because of his history of pump pocket fill and to reassure him that he will not have to go through that again. He was taken to the fluoroscopic suite and placed supine, skin prepped with ChloraPrep 22-gauge non-coring needle advanced into the pump. Old medication was removed and discarded per protocol and the volume was recorded. Pump was then refilled with morphine 25 mg per mL, 40 mL. Reprogramming session performed and rechecked by myself and the nurse, a copy provided to the patient. His next followup visit is scheduled for about 3 months. By: [id number] 23 Eugenio Franco MD /nt
[2020-02-02 14:21] VITALS: BP 164/92
--- NOTE | 2020-02-02 14:50 | NUR ---
Pain Clinic Assessment: 1. History of Osteoarthritis: SHOULDERS KNEES BACK History of Rheumatoid Arthritis: Not Applicable 2. Height: 5 ft. 11 in. 180.3 cm. Weight: 244.0 lb. oz. 110.678 kg. Patient's BMI: 34.0 3. Vital Signs: BP: 164/92 Pulse: 82 Resp: 16 Temp: 02 Sat: 100 ECG Mon: 4. Pain Intensity: 3-4 5. Fall Risk: Dizziness: N Needs help standing or walking: N Fallen in the last 3 months: N Fall risk comments: 6. Patient on Blood Thinner: None 7. History of Hypertension: Y 8. Opioid Therapy greater than 6 weeks: Y Opiate Contract Signed: 08/20/17 9. Risk Assessment Tool Provided: LOW RISK 0/3 10. Functional Assessment Tool: 11. Recreational Drug Use: Current within past 3 mos Drug Type: Tobacco Use: Never Smoker Tobacco Type: Amount or Packs/day: How Many Years: Alcohol Use: Yes Frequency: Weekly Quant: 2
== END | disposition home or self-care (01) ==
LOC: PAIN 06:56
PROVIDERS: ATTEND Anesthesiology Pain Medicine
DX: Z45.1 Encounter for adjustment and management of infusion pump (principal); M54.9 Dorsalgia, unspecified; M19.90 Unspecified osteoarthritis, unspecified site; Z98.890 Other specified postprocedural states; Z79.899 Other long term (current) drug therapy; Z79.891 Long term (current) use of opiate analgesic; Z85.47 Personal history of malignant neoplasm of testis

== ENCOUNTER → 2020-05-03 | Outpatient (CLI) | payer OTHER ==
[~2020-05-03] VITALS: Ht 180.3 cm; Wt 109.8 kg
[~2020-05-03] MED LIST changes: -COZAAR 25 MG TA25 M2 PO; +COZAAR100 MG PO; +NORVASC5 MG PO
[2020-05-03 10:27] VITALS: BP 166/95
--- NOTE | 2020-05-03 10:32 | NUR ---
Pain Clinic Assessment: 1. History of Osteoarthritis: SHOULDERS KNEES BACK History of Rheumatoid Arthritis: ALL JOINTS ESPECIALLY HANDS 2. Height: 5 ft. 11 in. 180.3 cm. Weight: 242.0 lb. oz. 109.771 kg. Patient's BMI: 33.8 3. Vital Signs: BP: 166/95 Pulse: 93 Resp: 20 Temp: 02 Sat: 98 ECG Mon: 4. Pain Intensity: 5 5. Fall Risk: Dizziness: N Needs help standing or walking: N Fallen in the last 3 months: N Fall risk comments: 6. Patient on Blood Thinner: None 7. History of Hypertension: Y 8. Opioid Therapy greater than 6 weeks: Y Opiate Contract Signed: 08/20/17 9. Risk Assessment Tool Provided: LOW RISK 0/3 10. Functional Assessment Tool: 11. Recreational Drug Use: Past greater than 3 mos Drug Type: MEDICAL MARIJUANA Tobacco Use: Never Smoker Tobacco Type: Amount or Packs/day: How Many Years: Alcohol Use: Yes Frequency: Weekly Quant:
== END | disposition home or self-care (01) ==
LOC: PAIN 06:48
PROVIDERS: ATTEND Anesthesiology Pain Medicine
DX: Z45.1 Encounter for adjustment and management of infusion pump (principal); G89.29 Other chronic pain; M96.1 Postlaminectomy syndrome, not elsewhere classified; M54.5 Low back pain; M43.16 Spondylolisthesis, lumbar region; M19.90 Unspecified osteoarthritis, unspecified site; Z98.890 Other specified postprocedural states; Z79.899 Other long term (current) drug therapy; Z79.891 Long term (current) use of opiate analgesic

== ENCOUNTER → 2020-07-29 | Outpatient (CLI) | payer OTHER ==
[~2020-07-29] VITALS: Ht 180.3 cm; Wt 110.7 kg
--- NOTE | 2020-07-29 11:09 | NUR ---
Pain Clinic Assessment: 1. History of Osteoarthritis: SHOULDERS KNEES BACK History of Rheumatoid Arthritis: ALL JOINTS ESPECIALLY HANDS 2. Height: 5 ft. 11 in. 180.3 cm. Weight: 244.0 lb. oz. 110.678 kg. Patient's BMI: 34.0 3. Vital Signs: BP: Pulse: 77 Resp: 16 Temp: 02 Sat: 100 ECG Mon: 4. Pain Intensity: 5-6 5. Fall Risk: Dizziness: N Needs help standing or walking: N Fallen in the last 3 months: Y Fall risk comments: 6. Patient on Blood Thinner: None 7. History of Hypertension: Y 8. Opioid Therapy greater than 6 weeks: Y Opiate Contract Signed: 08/20/17 9. Risk Assessment Tool Provided: LOW RISK 0/3 10. Functional Assessment Tool: 11. Recreational Drug Use: Past greater than 3 mos Drug Type: Tobacco Use: Never Smoker Tobacco Type: Amount or Packs/day: How Many Years: Alcohol Use: Yes Frequency: Quant:
== END | disposition home or self-care (01) ==
LOC: PAIN 09:17
PROVIDERS: ATTEND Anesthesiology Pain Medicine
DX: Z45.1 Encounter for adjustment and management of infusion pump (principal); M54.9 Dorsalgia, unspecified; M96.1 Postlaminectomy syndrome, not elsewhere classified; I10 Essential (primary) hypertension; M19.90 Unspecified osteoarthritis, unspecified site; Z98.890 Other specified postprocedural states; Z79.899 Other long term (current) drug therapy; Z85.47 Personal history of malignant neoplasm of testis; Z79.891 Long term (current) use of opiate analgesic; Z96.642 Presence of left artificial hip joint; Z96.652 Presence of left artificial knee joint

== ENCOUNTER → 2020-10-21 | Outpatient (CLI) | payer OTHER ==
[~2020-10-21] VITALS: Ht 180.3 cm; Wt 109.6 kg
--- NOTE | 2020-10-21 09:11 | NUR ---
Pain Clinic Assessment: 1. History of Osteoarthritis: SHOULDERS KNEES BACK History of Rheumatoid Arthritis: ALL JOINTS ESPECIALLY HANDS 2. Height: 5 ft. 11 in. 180.3 cm. Weight: 241.6 lb. oz. 109.589 kg. Patient's BMI: 33.7 3. Vital Signs: BP: Pulse: 78 Resp: 14 Temp: 02 Sat: 100 ECG Mon: 4. Pain Intensity: 5 5. Fall Risk: Dizziness: N Needs help standing or walking: N Fallen in the last 3 months: N Fall risk comments: 6. Patient on Blood Thinner: None 7. History of Hypertension: Y 8. Opioid Therapy greater than 6 weeks: Y Opiate Contract Signed: 08/20/17 9. Risk Assessment Tool Provided: LOW RISK 0/3 10. Functional Assessment Tool: 11. Recreational Drug Use: Current within past 3 mos Drug Type: gummies Tobacco Use: Never Smoker Tobacco Type: Amount or Packs/day: How Many Years: Alcohol Use: Yes Frequency: Weekly Quant: 1 drink/week
== END | disposition home or self-care (01) ==
LOC: PAIN 06:51
PROVIDERS: ATTEND Anesthesiology Pain Medicine
DX: Z45.1 Encounter for adjustment and management of infusion pump (principal); M96.1 Postlaminectomy syndrome, not elsewhere classified; G89.29 Other chronic pain; I10 Essential (primary) hypertension; M19.90 Unspecified osteoarthritis, unspecified site; Z98.890 Other specified postprocedural states; Z79.899 Other long term (current) drug therapy; Z85.47 Personal history of malignant neoplasm of testis

== ENCOUNTER → 2021-01-17 | Outpatient (CLI) | payer OTHER ==
[~2021-01-17] VITALS: Ht 180.3 cm; Wt 108.2 kg
[2021-01-17 10:07] VITALS: BP 160/84
--- NOTE | 2021-01-17 14:38 | NUR ---
Pain Clinic Assessment: 1. History of Osteoarthritis: SHOULDERS KNEES BACK History of Rheumatoid Arthritis: ALL JOINTS ESPECIALLY HANDS 2. Height: 5 ft. 11 in. 180.3 cm. Weight: 238.6 lb. oz. 108.228 kg. Patient's BMI: 33.3 3. Vital Signs: BP: 160/84 Pulse: 89 Resp: 16 Temp: 02 Sat: 99 ECG Mon: 4. Pain Intensity: 5 5. Fall Risk: Dizziness: N Needs help standing or walking: N Fallen in the last 3 months: N Fall risk comments: 6. Patient on Blood Thinner: None 7. History of Hypertension: Y 8. Opioid Therapy greater than 6 weeks: Y Opiate Contract Signed: 08/20/17 9. Risk Assessment Tool Provided: LOW RISK 0 10. Functional Assessment Tool: 11. Recreational Drug Use: Current within past 3 mos Drug Type: Tobacco Use: Never Smoker Tobacco Type: Amount or Packs/day: How Many Years: Alcohol Use: Yes Frequency: Quant:
== END | disposition home or self-care (01) ==
LOC: PAIN 06:59
PROVIDERS: ATTEND Anesthesiology Pain Medicine
DX: Z45.1 Encounter for adjustment and management of infusion pump (principal); G89.29 Other chronic pain; M96.1 Postlaminectomy syndrome, not elsewhere classified; M47.26 Other spondylosis with radiculopathy, lumbar region; I10 Essential (primary) hypertension; M19.90 Unspecified osteoarthritis, unspecified site; Z98.890 Other specified postprocedural states; Z79.899 Other long term (current) drug therapy; Z85.47 Personal history of malignant neoplasm of testis; Z79.891 Long term (current) use of opiate analgesic

== ENCOUNTER → 2021-01-24 | Outpatient (CLI) | payer OTHER ==
--- NOTE | 2021-01-24 10:37 | NUR ---
Pain Clinic Assessment: 1. History of Osteoarthritis: SHOULDERS KNEES BACK History of Rheumatoid Arthritis: ALL JOINTS ESPECIALLY HANDS 2. Height: ft. in. cm. Weight: lb. oz. kg. Patient's BMI: 3. Vital Signs: BP: Pulse: Resp: Temp: 02 Sat: ECG Mon: 4. Pain Intensity: 6 5. Fall Risk: Dizziness: Needs help standing or walking: Fallen in the last 3 months: Fall risk comments: 6. Patient on Blood Thinner: None 7. History of Hypertension: Y 8. Opioid Therapy greater than 6 weeks: Y Opiate Contract Signed: 08/20/17 9. Risk Assessment Tool Provided: LOW RISK 0 10. Functional Assessment Tool: 11. Recreational Drug Use: Current within past 3 mos Drug Type: MARIJUANA GUMMIES Tobacco Use: Never Smoker Tobacco Type: Amount or Packs/day: How Many Years: Alcohol Use: Yes Frequency: Weekly Quant: 1
== END ==
LOC: PAIN 06:59
PROVIDERS: ATTEND Anesthesiology Pain Medicine
DX: G89.29 Other chronic pain (principal); M54.50 Low back pain, unspecified; M96.1 Postlaminectomy syndrome, not elsewhere classified; Z97.8 Presence of other specified devices

== ENCOUNTER → 2021-04-25 | Outpatient (CLI) | payer OTHER ==
[~2021-04-25] VITALS: Ht 180.3 cm; Wt 104.3 kg
[2021-04-25 09:20] VITALS: BP 139/78
--- NOTE | 2021-04-25 09:26 | NUR ---
Pain Clinic Assessment: 1. History of Osteoarthritis: SHOULDERS KNEES BACK History of Rheumatoid Arthritis: ALL JOINTS ESPECIALLY HANDS 2. Height: 5 ft. 11 in. 180.3 cm. Weight: 230.0 lb. oz. 104.328 kg. Patient's BMI: 32.1 3. Vital Signs: BP: 139/78 Pulse: 89 Resp: 16 Temp: 02 Sat: 98 ECG Mon: 4. Pain Intensity: 6 5. Fall Risk: Dizziness: N Needs help standing or walking: N Fallen in the last 3 months: N Fall risk comments: 6. Patient on Blood Thinner: None 7. History of Hypertension: Y 8. Opioid Therapy greater than 6 weeks: Y Opiate Contract Signed: 08/20/17 9. Risk Assessment Tool Provided: LOW RISK 0 10. Functional Assessment Tool: 11. Recreational Drug Use: Current within past 3 mos Drug Type: Tobacco Use: Never Smoker Tobacco Type: Amount or Packs/day: How Many Years: Alcohol Use: Yes Frequency: Quant:
== END | disposition home or self-care (01) ==
LOC: PAIN 07:46
PROVIDERS: ATTEND Clinical Nurse Specialist Adult Health
DX: Z45.1 Encounter for adjustment and management of infusion pump (principal); G89.29 Other chronic pain; M96.1 Postlaminectomy syndrome, not elsewhere classified; I10 Essential (primary) hypertension; Z98.890 Other specified postprocedural states; Z79.899 Other long term (current) drug therapy; Z79.891 Long term (current) use of opiate analgesic; Z85.47 Personal history of malignant neoplasm of testis

== ENCOUNTER → 2021-05-12 | Outpatient (CLI) | payer OTHER ==
[~2021-05-12] VITALS: Ht 180.3 cm; Wt 103.1 kg
--- NOTE | 2021-05-12 09:33 | NUR ---
Pain Clinic Assessment: 1. History of Osteoarthritis: SHOULDERS KNEES BACK History of Rheumatoid Arthritis: ALL JOINTS ESPECIALLY HANDS 2. Height: 5 ft. 11 in. 180.3 cm. Weight: 227.2 lb. oz. 103.057 kg. Patient's BMI: 31.7 3. Vital Signs: BP: Pulse: Resp: Temp: 02 Sat: ECG Mon: 4. Pain Intensity: 7 WORSE 5. Fall Risk: Dizziness: N Needs help standing or walking: N Fallen in the last 3 months: N Fall risk comments: 6. Patient on Blood Thinner: None 7. History of Hypertension: Y 8. Opioid Therapy greater than 6 weeks: Y Opiate Contract Signed: 08/20/17 9. Risk Assessment Tool Provided: LOW RISK 0 10. Functional Assessment Tool: 11. Recreational Drug Use: Current within past 3 mos Drug Type: Tobacco Use: Never Smoker Tobacco Type: Amount or Packs/day: How Many Years: Alcohol Use: Yes Frequency: Quant:
== END | disposition home or self-care (01) ==
LOC: PAIN 09:01
PROVIDERS: ATTEND Clinical Nurse Specialist Adult Health
DX: Z45.2 Encounter for adjustment and management of vascular access device (principal); M96.1 Postlaminectomy syndrome, not elsewhere classified; I10 Essential (primary) hypertension; M19.90 Unspecified osteoarthritis, unspecified site; Z98.890 Other specified postprocedural states; Z79.899 Other long term (current) drug therapy; Z85.47 Personal history of malignant neoplasm of testis; Z87.891 Personal history of nicotine dependence